=== PATIENT | male | born 1995 | race Hispanic/Latino ===

== ENCOUNTER 2018-04-28 20:29 | Emergency (ER) | payer MEDICAID, OTHER ==
[2018-04-28] MEDS ORDERED: CEPHALEXIN 500 MG CAPSULE ONE (22:33)
[2018-04-28] MEDS ORDERED: SULFAMETHOX-TMP DS 800/160 TAB ONE (22:33)
== END 2018-04-29 00:53 | disposition home or self-care (01) ==
LOC: EDH 20:29
DX: L03.113 Cellulitis of right upper limb (principal); Z72.0 Tobacco use